=== PATIENT | male | born 1965 | race Caucasian/White ===

== ENCOUNTER 2024-01-18 22:22 | Emergency (ER) | payer OTHER, SELFPAY ==
[2024-01-18 22:24] VITALS: BP 154/100
[2024-01-18] MEDS: TYLENOL 1000 MG PO (23:46)
[2024-01-18] MEDS: MOTRIN 600 MG PO (23:46)
[2024-01-19] MEDS: AUGMENTIN 875 MG/125 MG 1 TABLET PO (00:20)
[2024-01-19 00:22] VITALS: BMI 22.5
[2024-01-19 00:23] VITALS: BP 142/74
--- NOTE | 2024-01-19 00:32 | ED.GENMED ---
History of Present Illness
General
Chief Complaint: Skin Problem
Time Seen by Provider: 01/18/24 23:20
History of Present Illness
History of Present Illness:
58-year-old male presents to the emergency department for evaluation of a painful pilonidal abscess. He has a lengthy history of these and was planning to see general surgery on Friday for evaluation. Started on cephalexin by his primary care
physician earlier this week but symptoms are worsening. No fevers or chills
Review of Systems
Review of Systems
Allergies reviewed?: Yes
All Other Systems: ROS reviewed and negative except as documented in HPI and ROS
Phy Exam
Physical Exam
Physical Exam:
GEN: Well appearing, NAD, WDWN
HEENT: Oral mucosa moist, no scleral icterus
Cardiac: Regular rate
Lung: No respiratory distress, no tachypnea
Rectal: Large supragluteal/pilonidal abscess extending across the midline measuring approximately 8 cm x 12 cm, does not approach the anal verge
MSK: No gross deformity or injuries
Skin: Good color, no pallor or jaundice, no rashes
Neuro: AO x3, moves all extremities freely
Psych: Calm, cooperative
Course
Orders/Labs/Results
Orders:
Orders
01/18/24 23:44
Acetaminophen [Tylenol] 1,000 mg .ROUTE .STK-MED ONE
Ibuprofen [Motrin] 600 mg .ROUTE .STK-MED ONE
01/18/24 23:45
Acetaminophen [Tylenol] 1,000 mg PO NOW STA
Ibuprofen [Motrin] 600 mg PO NOW STA
01/19/24 00:13
Amoxicillin 875 mg/Clav 125 mg [Augmentin 875 mg/125 mg] 1 tablet PO NOW STA
Vital Signs
Initial and Last Documented VS:
Initial Vital Signs
Temp Pulse Resp BP Pulse Ox
98.6 F 110 18 154/100 99
01/18/24 22:24 01/18/24 22:24 01/18/24 22:24 01/18/24 22:24 01/18/24 22:24
Last Documented Vital Signs
Temp Pulse Resp BP Pulse Ox
98.6 F 77 16 142/74 97
01/18/24 22:24 01/19/24 00:23 01/19/24 00:23 01/19/24 00:23 01/19/24 00:23
Procedures
Incision/Drainage/Joint Aspiration
Pilonidal:
Anethesia: 1% Lidocaine with Epi
Preparation: cleaned with alcohol wipe
Type of procedure: incise
Nature of site: abscess
Description of abscess: greater than 3cm, complex, involved incision, drainage and involves multiple areas
Loculations broken up: Yes
How much fluid was obtained?: large amount
Fluid description: purulent
Treatment: packed with gauze
MDM/Problems Addressed
MDM/Problems Addressed:
Patient with a large pilonidal cyst however no evidence for perianal abscess. Drainage of 2 sections of the abscess performed at the bedside. Patient was switched to Augmentin and is advised to keep his general surgery follow-up in 2 days
*Critical Care Note
Total Time (30-74mins, 75-104mins- exclusive of procedures): Not Applicable
ED Attending Note
-
Portions of this chart may have been created with voice recognition software.� Occasional wrong word or��sound alike� substitutions may have occurred due to the inherent limitations of voice recognition software.
Discharge Plan
Departure
Patient Disposition: Home (Routine Discharge)
Date of Disposition: 01/19/24
Time of Disposition: 00:33
Patient with high blood pressure during this ER visit?: No
Discharge Problem:
Pilonidal abscess
Instructions: Pilonidal Cyst (DC)
Prescriptions:
New
amoxicillin-pot clavulanate 875-125 mg tablet
1 tab PO BID Qty: 20 0RF
Discontinued
cephalexin [Keflex] 500 mg Capsule
500 mg PO Q4H
No Action
aspirin 325 mg Tablet
325 mg PO .3-4XSPERWEEK
Referrals:
NONE,* [Family Provider] -
Interventions
Interventions:
*Risk Screen - Suicide Last Done: 01/18/24 22:24
*General Assessment Last Done: 01/18/24 22:24
*Neglect/Abuse Screening Last Done: 01/18/24 22:24
*ED COVID-19 Vaccine History Last Done: 01/18/24 23:35
*Nursing Disposition Last Done: 01/19/24 00:45
ED-Skin Assessment Last Done: 01/18/24 23:43
Discharge Date and Time
Discharge Date/Time: 01/19/24 00:45
Print Language: RWANDAN
== END 2024-01-19 00:45 | disposition home or self-care (01) ==
LOC: EMR 22:22
PROVIDERS: EMERGENCY PHYSICIAN Emergency Medicine
DX: L05.01 Pilonidal cyst with abscess (principal)
CPT/HCPCS: 99284; 10061